=== PATIENT | female | born 1960 | race African-American/Black ===

== ENCOUNTER 2016-08-25 10:22 | Emergency (ER) | payer MEDICAID ==
[~2016-08-25] VITALS: Ht 167.6 cm; Wt 60.0 kg
[~2016-08-25 10:22] MED LIST: [UNRECOGNIZED DRUG - REMARK]
[2016-08-25] MEDS ORDERED: MORPHINE SULFATE 4 MG/ML CPJ (NOT FOR IM USE) IV STA (11:19)
[2016-08-25] MEDS ORDERED: ONDANSETRON HCL 4MG/2ML VIAL IV STA (11:19)
[2016-08-25] MEDS ORDERED: FAMOTIDINE 20MG/2ML VIAL IV STA (11:19)
[2016-08-25] MEDS ORDERED: SODIUM CHLORIDE 0.9% 1,000 ML IV ONE (11:19)
[2016-08-25 12:17] LABS: CLARITY URINE CLEAR (CLEAR); COLOR URINE YELLOW (YELLOW); GLUCOSE URINE NEGATIVE (NEGATIVE); KETONES URINE NEGATIVE (NEGATIVE); LEUKOCYTE ESTERASE URINE 1+ (NEGATIVE); NITRITE URINE NEGATIVE (NEGATIVE); OCCULT BLOOD URINE NEGATIVE (NEGATIVE); PROTEIN URINE NEGATIVE (NEGATIVE); UROBILINOGEN URINE 0.2 E.U./dL (0.2-1.0)
[2016-08-25 12:27] LABS: BASOPHILS % 0.8 % (0.0-2.0); EOSINOPHILS % 3.3 % (0.0-5.0); HEMATOCRIT. 43.5 % (36.0-48.0); HEMOGLOBIN. 14.8 g/dL (12.0-16.0); LYMPHOCYTES % 30.2 % (20.0-50.0); MEAN CORPUSCULAR HEMOGLOBIN 32.8 pg (28.0-32.0); MEAN CORPUSCULAR VOLUME 96.7 fL (81.0-99.0); MEAN PLATELET VOLUME 9.5 fl (7.4-10.4); MONOCYTES % 9.8 % (2.0-8.0); NEUTROPHILS % 55.9 % (40.0-76.0); PLATELET 162 x1000/uL (130-400); RED CELL DISTRIBUTION WIDTH 14.1 % (11.6-14.6)
[2016-08-25 12:33] LABS: *AMPHETAMINES SCREEN URINE NEGATIVE (NEGATIVE); *BARBITURATES SCREEN URINE NEGATIVE (NEGATIVE); *BENZODIAZEPINES SCREEN URINE NEGATIVE (NEGATIVE); *COCAINE SCREEN URINE NEGATIVE (NEGATIVE); CANNABINOID URINE SCREEN PRESUMTIVE POSITIVE (NEGATIVE); METHADONE URINE SCREEN NEGATIVE (NEGATIVE); OPIATES URINE SCREEN NEGATIVE (NEGATIVE); PHENCYCLIDINE URINE SCREEN NEGATIVE (NEGATIVE)
[2016-08-25 12:43] LABS: CARBON DIOXIDE 31 mEq/L (21-32); CHLORIDE 103 mEq/L (98-107)
[2016-08-25 12:51] LABS: HCG SCREEN NEGATIVE
[2016-08-25 13:07] LABS: INR 1.1; PROTHROMBIN TIME 11.9 sec
[2016-08-25 14:49] VITALS: BP 134/77
== END 2016-08-25 14:54 | disposition home or self-care (01) ==
LOC: ER 11:17
DX: K80.20 Calculus of gallbladder without cholecystitis without obstruction (principal); N39.0 Urinary tract infection, site not specified; F41.9 Anxiety disorder, unspecified; I10 Essential (primary) hypertension; M19.90 Unspecified osteoarthritis, unspecified site; F17.200 Nicotine dependence, unspecified, uncomplicated; F12.10 Cannabis abuse, uncomplicated
CPT/HCPCS: 36415; 71010; 76705; 80053; 80305; 81001; 81025; 83690; 84703; 85025; 85610; 93005; 96361; 96374; 96375; 99285; J2270; J2405; J3490; J7030; Z7610

== ENCOUNTER 2017-01-01 12:42 | Emergency (ER) | payer MEDICAID, MEDICARE ==
[~2017-01-01] VITALS: Ht 167.6 cm; Wt 66.0 kg
[2017-01-01] MEDS ORDERED: MORPHINE SULFATE 4 MG/ML CPJ (NOT FOR IM USE) IV STA (16:04)
[2017-01-01] MEDS ORDERED: SODIUM CHLORIDE 0.9% 1,000 ML IV ONE ×2 (16:04)
[2017-01-01 16:38] LABS: CHLORIDE 105 mEq/L (98-107)
[2017-01-01 16:40] LABS: HCG SCREEN NEGATIVE
[2017-01-01 16:41] LABS: CARBON DIOXIDE 30 mEq/L (21-32)
[2017-01-01 16:42] LABS: INR 1.1; PROTHROMBIN TIME 11.9 sec (9.4-11.6)
[2017-01-01 16:48] LABS: BASOPHILS % 0.4 % (0.0-2.0); EOSINOPHILS % 3.3 % (0.0-5.0); HEMOGLOBIN. 14.2 g/dL (12.0-16.0); LYMPHOCYTES % 32.7 % (20.0-50.0); MEAN CORPUSCULAR HEMOGLOBIN 32.9 pg (28.0-32.0); MEAN CORPUSCULAR VOLUME 97.8 fL (81.0-99.0); MEAN PLATELET VOLUME 9.1 fl (7.4-10.4); NEUTROPHILS % 57.6 % (40.0-76.0); PLATELET 197 x1000/uL (130-400)
[2017-01-01] MEDS ORDERED: FAMOTIDINE 20MG/2ML VIAL IV ONE (17:00)
[2017-01-01] MEDS: MORPHINE SULFATE 10 MG/ML CPJ IV NR ×2 (17:53→17:58)
[2017-01-01 19:06] LABS: CLARITY URINE CLEAR (CLEAR); COLOR URINE YELLOW (YELLOW); GLUCOSE URINE NEGATIVE (NEGATIVE); KETONES URINE NEGATIVE (NEGATIVE); LEUKOCYTE ESTERASE URINE TRACE (NEGATIVE); NITRITE URINE NEGATIVE (NEGATIVE); OCCULT BLOOD URINE NEGATIVE (NEGATIVE); PROTEIN URINE NEGATIVE (NEGATIVE); SPECIFIC GRAVITY URINE 1.014 (1.005-1.030)
[2017-01-01] MEDS ORDERED: POTASSIUM CHLORIDE 20MEQ TABLET SR PO ONE (19:45)
[2017-01-01] MEDS ORDERED: IOHEXOL-300 100 ML BOTTLE ONE (20:38)
[2017-01-01 22:38] VITALS: BP 125/80
== END 2017-01-01 22:39 | disposition home or self-care (01) ==
LOC: ER 13:55
DX: K80.20 Calculus of gallbladder without cholecystitis without obstruction (principal); D25.9 Leiomyoma of uterus, unspecified; F17.210 Nicotine dependence, cigarettes, uncomplicated; I10 Essential (primary) hypertension; F12.10 Cannabis abuse, uncomplicated; F10.10 Alcohol abuse, uncomplicated; Y90.9 Presence of alcohol in blood, level not specified
CPT/HCPCS: 36415; 74177; 76705; 80053; 81001; 83690; 84703; 85025; 85610; 96361; 96374; 96375; 96376; 99285; J2270; J3490; J7030; Q9967; Z7610

== ENCOUNTER 2018-05-13 14:37 | Emergency (ER) | payer MEDICARE ==
[~2018-05-13] VITALS: Ht 167.6 cm; Wt 78.0 kg
[2018-05-13 14:52] VITALS: BP 136/74
== END 2018-05-13 22:20 | disposition left against medical advice (07) ==
LOC: ER 14:37
DX: Z53.21 Procedure and treatment not carried out due to patient leaving prior to being seen by health care provider (principal)

== ENCOUNTER 2019-05-22 00:19 | Emergency (ER) | payer MEDICAID, MEDICARE ==
[~2019-05-22] VITALS: Ht 167.6 cm; Wt 73.0 kg
[2019-05-22] MEDS ORDERED: SODIUM CHLORIDE 0.9% 1,000 ML IV NR (01:23)
[2019-05-22] MEDS ORDERED: ONDANSETRON HCL 4MG/2ML INJ IV NR (01:23)
[2019-05-22 01:43] LABS: CLARITY URINE CLEAR (CLEAR); COLOR URINE ORANGE (YELLOW); KETONES URINE TRACE (NEGATIVE); LEUKOCYTE ESTERASE URINE 2+ (NEGATIVE); NITRITE URINE POSITIVE (NEGATIVE); OCCULT BLOOD URINE NEGATIVE (NEGATIVE); PH URINE 6.5 (4.5-8.0); PROTEIN URINE NEGATIVE (NEGATIVE); SPECIFIC GRAVITY URINE 1.027 (1.005-1.030)
[2019-05-22 01:54] LABS: BASOPHILS % 0.4 % (0.0-2.0); HEMATOCRIT. 29.1 % (36.0-48.0); HEMOGLOBIN. 9.9 g/dL (12.0-16.0); LYMPHOCYTES % 23.4 % (20.0-50.0); MEAN CORPUSCULAR HEMOGLOBIN 36.3 pg (28.0-32.0); MEAN CORPUSCULAR VOLUME 106.7 fL (81.0-99.0); MEAN PLATELET VOLUME 9.8 fl (7.4-10.4); MONOCYTES % 6.9 % (2.0-8.0); NEUTROPHILS % 68.3 % (40.0-76.0); PLATELET 141 x1000/uL (130-400); RED BLOOD CELL COUNT 2.73 mill/uL (4.2-5.4); RED CELL DISTRIBUTION WIDTH 13.2 % (11.6-14.6)
[2019-05-22 02:00] LABS: INR 1.4; PROTHROMBIN TIME 14.7 sec (9.6-11.0)
[2019-05-22 02:05] LABS: CHLORIDE 108 mEq/L (98-107)
[2019-05-22] MEDS ORDERED: IOHEXOL-300 100 ML BOTTLE ONE (04:28)
[2019-05-22] MEDS ORDERED: ONDANSETRON HCL 4MG/2ML INJ IV STA (05:48)
[2019-05-22] MEDS ORDERED: HYDROCODONE/ACETAMINOPHEN 5/325MG TABLET PO STA (05:48)
[2019-05-22 10:08] VITALS: BP 112/60
== END 2019-05-22 10:20 | disposition home or self-care (01) ==
LOC: ER 00:19
DX: K80.20 Calculus of gallbladder without cholecystitis without obstruction (principal); R11.2 Nausea with vomiting, unspecified; F17.200 Nicotine dependence, unspecified, uncomplicated
CPT/HCPCS: 36415; 74177; 76705; 80053; 81003; 83690; 85025; 85610; 96361; 96374; 96376; 99285; J2405; Q9967

== ENCOUNTER 2019-05-24 09:45 | Inpatient (IN) | payer MEDICAID ==
[~2019-05-24] VITALS: Ht 167.6 cm; Wt 66.7 kg
[2019-05-24 12:01] LABS: BASOPHILS % 0.2 % (0.0-2.0); EOSINOPHILS % 0.1 % (0.0-5.0); HEMATOCRIT. 21.8 % (36.0-48.0); HEMOGLOBIN. 7.4 g/dL (12.0-16.0); LYMPHOCYTES % 11.6 % (20.0-50.0); MEAN CORPUSCULAR HEMOGLOBIN 36.7 pg (28.0-32.0); MEAN CORPUSCULAR VOLUME 107.4 fL (81.0-99.0); MEAN PLATELET VOLUME 10.3 fl (7.4-10.4); MONOCYTES % 7.2 % (2.0-8.0); NEUTROPHILS % 80.9 % (40.0-76.0); PLATELET 138 x1000/uL (130-400); RED BLOOD CELL COUNT 2.03 mill/uL (4.2-5.4); RED CELL DISTRIBUTION WIDTH 13.2 % (11.6-14.6)
[2019-05-24 12:05] LABS: CLARITY URINE CLEAR (CLEAR); COLOR URINE DARK YELLOW (YELLOW); KETONES URINE TRACE (NEGATIVE); LEUKOCYTE ESTERASE URINE 1+ (NEGATIVE); NITRITE URINE NEGATIVE (NEGATIVE); OCCULT BLOOD URINE NEGATIVE (NEGATIVE); PH URINE 5.5 (4.5-8.0); PROTEIN URINE NEGATIVE (NEGATIVE); SPECIFIC GRAVITY URINE 1.025 (1.005-1.030)
[2019-05-24 12:06] LABS: CHLORIDE 110 mEq/L (98-107)
[2019-05-24 12:08] LABS: INR 1.4
[2019-05-24] MEDS ORDERED: ACETAMINOPHEN 325MG TABLET PO PRN (14:45)
[2019-05-24] MEDS ORDERED: ONDANSETRON HCL 4MG/2ML INJ IV PRN (14:45)
[2019-05-24] MEDS ORDERED: PANTOPRAZOLE SODIUM 40 MG/VIAL IV SCH (14:45)
[2019-05-24] MEDS ORDERED: IPRATROPIUM/ALBUTEROL 0.5-3(2.5)MG/3ML NEB HHN PRN (14:45)
[2019-05-24] MEDS ORDERED: HYDROCODONE/ACETAMINOPHEN 5/325MG TABLET PO PRN (14:45)
[2019-05-24] MEDS: PANTOPRAZOLE SODIUM 40 MG/VIAL IV SCH ×2 (15:15→23:33)
[2019-05-24] MEDS ORDERED: THIAMINE HCL 100 MG in SODIUM CHLORIDE 0.9% 50 ML IV NR (15:45)
[2019-05-24] MEDS ORDERED: FENTANYL CITRATE/PF 50MCG/ML 2ML VIAL ONE (16:45)
[2019-05-24] MEDS ORDERED: MIDAZOLAM HCL 5 MG/5 ML VIAL ONE (16:45)
[2019-05-24] MEDS ORDERED: FENTANYL CITRATE/PF 50MCG/ML 2ML VIAL IV PRN (16:53)
[2019-05-24] MEDS ORDERED: MIDAZOLAM HCL 5 MG/5 ML VIAL IV PRN (16:54)
[2019-05-24] MEDS ORDERED: DIAZEPAM 5 MG/ML 2ML CPJ IV PRN (16:56)
[2019-05-24] MEDS ORDERED: DIAZEPAM 5 MG/ML 2ML CPJ ONE (17:01)
[2019-05-24 18:20] VITALS: BP 104/48
[2019-05-24] MEDS ORDERED: OCTREOTIDE 1,000 MCG in SODIUM CHLORIDE 0.9% 100 ML IV SCH (18:30)
[2019-05-24] MEDS ORDERED: OCTREOTIDE 1,000 MCG in SODIUM CHLORIDE 0.9% 98 ML IV SCH (18:30)
[2019-05-24 20:00] VITALS: BP 104/57
[2019-05-24 20:22] LABS: BASOPHILS % 0.3 % (0.0-2.0); EOSINOPHILS % 0.7 % (0.0-5.0); LYMPHOCYTES % 31.5 % (20.0-50.0); MEAN CORPUSCULAR HEMOGLOBIN 36.8 pg (28.0-32.0); MEAN CORPUSCULAR VOLUME 108.7 fL (81.0-99.0); MEAN PLATELET VOLUME 10.4 fl (7.4-10.4); MONOCYTES % 8.9 % (2.0-8.0); NEUTROPHILS % 58.6 % (40.0-76.0); PLATELET 90 x1000/uL (130-400); RED BLOOD CELL COUNT 1.63 mill/uL (4.2-5.4); RED CELL DISTRIBUTION WIDTH 13.3 % (11.6-14.6)
[2019-05-24 20:43] LABS: HEMATOCRIT. 17.8 % (36.0-48.0)
[2019-05-24 21:57] LABS: FOLIC ACID (FOLATE) SERUM 5.4 ng/mL (>5.38)
[2019-05-24 22:20] VITALS: BP 104/57
[2019-05-24 22:35] VITALS: BP 102/50
[2019-05-24 23:35] VITALS: BP 113/57
[2019-05-25] VITALS (15 sets, daily range): BP systolic 98–127; BP diastolic 52–68
[2019-05-25] MEDS ORDERED: FOLIC ACID 1 MG, THIAMINE HCL 100 MG, MVI, ADULT NO.1 10 ML in DEXTROSE 5% WATER 1,000 ML IV ONE ×8 (02:15→09:00)
[2019-05-25] MEDS ORDERED: DEXT 5%/0.45% NACL 1000ML 1,000 ML IV SCH ×2 (02:15→14:00)
[2019-05-25] MEDS ORDERED: FOLIC ACID 1 MG, THIAMINE HCL 100 MG, MVI, ADULT NO.1 10 ML in DEXT 5%/0.45% NACL 1000M... IV SCH ×4 (04:00)
[2019-05-25 06:49] LABS: INR 1.3
[2019-05-25 06:50] LABS: BASOPHILS % 0.6 % (0.0-2.0); EOSINOPHILS % 2.1 % (0.0-5.0); LYMPHOCYTES % 29.1 % (20.0-50.0); MEAN CORPUSCULAR HEMOGLOBIN 34.8 pg (28.0-32.0); MEAN CORPUSCULAR VOLUME 99.5 fL (81.0-99.0); MEAN PLATELET VOLUME 10.3 fl (7.4-10.4); NEUTROPHILS % 59.2 % (40.0-76.0); PLATELET 75 x1000/uL (130-400); RED BLOOD CELL COUNT 2.41 mill/uL (4.2-5.4)
[2019-05-25] MEDS: METOCLOPRAMIDE HCL 10MG/2ML VIAL IV SCH ×4 (06:53→21:08)
[2019-05-25] MEDS: SUCRALFATE 1 G/10 ML UDC PO SCH ×4 (06:53→21:08)
[2019-05-25 07:02] LABS: HEMOGLOBIN. 8.4 g/dL (12.0-16.0)
[2019-05-25 07:24] LABS: CHLORIDE 114 mEq/L (98-107)
[2019-05-25 07:36] LABS: LDL CHOLESTEROL 33 mg/dL (5-100)
[2019-05-25 07:38] LABS: T4 FREE 1.06 ng/dL (0.76-1.46)
[2019-05-25 07:39] LABS: HDL CHOLESTEROL 29 mg/dL (40-59)
[2019-05-25] MEDS ORDERED: POTASSIUM CHLORIDE 20MEQ TABLET SR PO NR ×2 (09:00→12:43)
[2019-05-25] MEDS: PANTOPRAZOLE SODIUM 40 MG/VIAL IV SCH ×2 (09:47→21:08)
[2019-05-25] MEDS: PHYTONADIONE 10MG/ML AMP SUBCUT SCH (09:48)
[2019-05-25 10:15] LABS: PHOSPHORUS 2.3 mg/dL (2.5-4.9)
[2019-05-25 15:51] LABS: HEMATOCRIT 25.6 % (36.0-48.0); HEMOGLOBIN 8.8 g/dL (12.0-16.0)
[2019-05-25 15:52] LABS: INR 1.2; PROTHROMBIN TIME 13.4 sec (9.6-11.0)
[2019-05-26] VITALS: BP 110/61
[2019-05-26] MEDS: DEXT 5%/0.45% NACL 1000ML 1,000 ML IV SCH ×2 (02:37→13:58)
[2019-05-26 04:00] VITALS: BP 114/71
[2019-05-26] MEDS: SUCRALFATE 1 G/10 ML UDC PO SCH ×4 (05:54→21:29)
[2019-05-26] MEDS: METOCLOPRAMIDE HCL 10MG/2ML VIAL IV SCH ×4 (05:55→21:34)
[2019-05-26 08:00] VITALS: BP 100/55
[2019-05-26] MEDS: PHYTONADIONE 10MG/ML AMP SUBCUT SCH (09:04)
[2019-05-26] MEDS: PANTOPRAZOLE SODIUM 40 MG/VIAL IV SCH ×2 (09:04→21:30)
[2019-05-26] MEDS: FOLIC ACID 1 MG, THIAMINE HCL 100 MG, MVI, ADULT NO.1 10 ML in DEXTROSE 5% WATER 1,000 ML IV SCH ×4 (09:09)
[2019-05-26 09:33] LABS: BASOPHILS % 0.5 % (0.0-2.0); EOSINOPHILS % 3.7 % (0.0-5.0); HEMATOCRIT. 26.5 % (36.0-48.0); LYMPHOCYTES % 34.2 % (20.0-50.0); MEAN CORPUSCULAR HEMOGLOBIN 34.4 pg (28.0-32.0); MEAN CORPUSCULAR VOLUME 101.7 fL (81.0-99.0); MEAN PLATELET VOLUME 10.2 fl (7.4-10.4); NEUTROPHILS % 49.6 % (40.0-76.0); PLATELET 89 x1000/uL (130-400); RED CELL DISTRIBUTION WIDTH 20.5 % (11.6-14.6)
[2019-05-26 09:40] LABS: INR 1.2; PROTHROMBIN TIME 13.4 sec (9.6-11.0)
[2019-05-26] MEDS ORDERED: SIMETHICONE 40 MG/0.6 ML 30ML ONE (10:46)
[2019-05-26] MEDS ORDERED: MIDAZOLAM HCL 2 MG/2 ML VIAL ONE (11:33)
[2019-05-26] MEDS ORDERED: DIPHENHYDRAMINE 50MG/ML VIAL ONE (11:33)
[2019-05-26] MEDS ORDERED: LIDOCAINE HCL/PF 1% 10 MG/ML 5ML VIAL ONE (11:34)
[2019-05-26] MEDS ORDERED: FENTANYL CITRATE/PF 50MCG/ML 2ML VIAL ONE (11:34)
[2019-05-26] MEDS ORDERED: PROPOFOL 200MG/20ML VIAL IV ONE (11:34)
[2019-05-26] MEDS ORDERED: BARIUM SULFATE 450ML ORAL SUSP PO SCH ×2 (12:15→14:45)
[2019-05-26 14:59] LABS: CHLORIDE 112 mEq/L (98-107)
[2019-05-26 15:37] LABS: HEPATITIS B SURFACE ANTIGEN NEGATIVE
[2019-05-26 16:00] VITALS: BP 110/58
[2019-05-26 16:07] LABS: HEPATITIS A AB IGM NEGATIVE (NEGATIVE)
[2019-05-26 16:49] LABS: HEMATOCRIT 24.5 % (36.0-48.0); HEMOGLOBIN 8.4 g/dL (12.0-16.0); MEAN CORPUSCULAR HEMOGLOBIN 34.7 pg (28.0-32.0); MEAN CORPUSCULAR VOLUME 101.8 fL (81.0-99.0); PLATELET 87 x1000/uL (130-400); RED BLOOD CELL COUNT 2.41 mill/uL (4.2-5.4); RED CELL DISTRIBUTION WIDTH 20.8 % (11.6-14.6)
[2019-05-26 16:55] LABS: INR 1.2; PROTHROMBIN TIME 13.2 sec (9.6-11.0)
[2019-05-26] MEDS: FERROUS SULFATE 325MG TABLET PO SCH (17:44)
[2019-05-26 20:00] VITALS: BP_SYST 107; BP_SYST 112; BP_DIAS 49; BP_DIAS 57
[2019-05-27] VITALS: BP 114/73
[2019-05-27] MEDS: DEXT 5%/0.45% NACL 1000ML 1,000 ML IV SCH (00:19)
[2019-05-27 06:40] LABS: HEMATOCRIT 24.5 % (36.0-48.0); HEMOGLOBIN 8.6 g/dL (12.0-16.0); MEAN CORPUSCULAR HEMOGLOBIN 35.4 pg (28.0-32.0); MEAN CORPUSCULAR VOLUME 101.3 fL (81.0-99.0); PLATELET 92 x1000/uL (130-400); RED BLOOD CELL COUNT 2.41 mill/uL (4.2-5.4); RED CELL DISTRIBUTION WIDTH 20.1 % (11.6-14.6)
[2019-05-27] MEDS: FERROUS SULFATE 325MG TABLET PO SCH ×2 (06:41→12:17)
[2019-05-27] MEDS: METOCLOPRAMIDE HCL 10MG/2ML VIAL IV SCH ×2 (06:41→12:17)
[2019-05-27] MEDS: SUCRALFATE 1 G/10 ML UDC PO SCH ×2 (06:41→12:17)
[2019-05-27 06:59] LABS: CHLORIDE 112 mEq/L (98-107)
[2019-05-27 08:00] VITALS: BP_SYST 109; BP_SYST 160; BP_DIAS 64; BP_DIAS 79
[2019-05-27] MEDS: PANTOPRAZOLE SODIUM 40 MG/VIAL IV SCH (09:19)
[2019-05-27] MEDS: PHYTONADIONE 10MG/ML AMP SUBCUT SCH (09:20)
[2019-05-27] MEDS: FOLIC ACID 1 MG, THIAMINE HCL 100 MG, MVI, ADULT NO.1 10 ML in DEXTROSE 5% WATER 1,000 ML IV SCH ×4 (12:16)
[2019-05-27] MEDS ORDERED: HYDR-4001 MT (13:06)
[2019-05-27] MEDS ORDERED: PANT40SU MT (13:06)
[2019-05-27] MEDS ORDERED: SUCR1TAB30 MT (13:06)
[2019-05-27 13:52] LABS: HEMATOCRIT 29.5 % (36.0-48.0)
[2019-05-27 15:58] VITALS: BP 120/74
[2019-05-27 16:18] VITALS: BP 120/74
[2019-05-30 15:11] LABS: 7-AMINOCLONAZEPAM CONFIRM Negative (.); ALPRAZOLAM CONFIRM Negative (.); CHLORDIAZEPOXIDE CONFIRM Negative (.); CLONAZEPAM CONFIRM Negative (.); DESMETHYLCHLORDIAZEPOXIDE Negative (.); DIAZEPAM CONFIRM 13 ng/mL (.); FLURAZEPAM CONFIRM Negative (.); LORAZEPAM CONFIRM Negative (.); MIDAZOLAM CONFIRM 2 ng/mL (.); OXAZEPAM CONFIRM Negative (.); TEMAZEPAM CONFIRM Negative (.); TRIAZOLAM CONFIRM Negative (.)
[2019-06-01 19:06] LABS: BARBITURATE SCREEN Negative ug/mL (Cutoff:0.1); BENZODIAZEPINE SCREEN ++POSITIVE++ ng/mL (Cutoff:20); OPIATES SCREEN Negative ng/mL (Cutoff:5); PHENCYCLIDINE SCREEN Negative ng/mL (Cutoff:8)
== END 2019-05-27 17:30 | disposition home or self-care (01) | DRG 241 ==
LOC: ER 09:45 → 5WST 14:14 → ENRESERV 16:02
PROVIDERS: ADMIT Internal Medicine; ATTEND Internal Medicine
PROC: 0DJ08ZZ Inspection of Upper Intestinal Tract, Via Natural or Artificial Opening Endoscopic (ICD-10-PCS; principal; 2019-05-24)
PROC: 30233N1 Transfusion of Nonautologous Red Blood Cells into Peripheral Vein, Percutaneous Approach (ICD-10-PCS; 2019-05-24)
PROC: 30233K1 Transfusion of Nonautologous Frozen Plasma into Peripheral Vein, Percutaneous Approach (ICD-10-PCS; 2019-05-25)
PROC: 0DB98ZX Excision of Duodenum, Via Natural or Artificial Opening Endoscopic, Diagnostic (ICD-10-PCS; 2019-05-26)
PROC: 0DB68ZX Excision of Stomach, Via Natural or Artificial Opening Endoscopic, Diagnostic (ICD-10-PCS; 2019-05-26)
DX: K29.81 Duodenitis with bleeding (principal); E43 Unspecified severe protein-calorie malnutrition; D68.9 Coagulation defect, unspecified; D69.6 Thrombocytopenia, unspecified; R18.8 Other ascites; E87.8 Other disorders of electrolyte and fluid balance, not elsewhere classified; R04.2 Hemoptysis; D50.0 Iron deficiency anemia secondary to blood loss (chronic); K25.4 Chronic or unspecified gastric ulcer with hemorrhage; K29.71 Gastritis, unspecified, with bleeding; K52.9 Noninfective gastroenteritis and colitis, unspecified; K80.20 Calculus of gallbladder without cholecystitis without obstruction; E86.0 Dehydration; K70.9 Alcoholic liver disease, unspecified; I10 Essential (primary) hypertension; K76.0 Fatty (change of) liver, not elsewhere classified; Y90.9 Presence of alcohol in blood, level not specified; F10.20 Alcohol dependence, uncomplicated; E87.6 Hypokalemia; Z72.0 Tobacco use; Z87.11 Personal history of peptic ulcer disease; Z68.23 Body mass index [BMI] 23.0-23.9, adult; Z71.6 Tobacco abuse counseling; Z71.41 Alcohol abuse counseling and surveillance of alcoholic; R45.1 Restlessness and agitation
CPT/HCPCS: 36415; 71045; 74177; 76705; 80048; 80053; 80061; 80076; 80307; 81003; 82140; 82248; 82378; 82607; 82728; 82746; 83540; 83550; 83615; 83735; 84100; 84439; 84443; 85014; 85018; 85025; 85027; 85384; 86705; 86709; 86803; 86850; 86900; 86920; 86927; 87340; 88305; 88312; 88313; 99285; C9113; J1200; J2250; J2354; J2704; J2765; J3010; J3411; J3430; J3490; J7050; J7070; P9016; P9017

== ENCOUNTER 2019-12-10 18:01 | Emergency (ER) | payer MEDICAID ==
[~2019-12-10] VITALS: Ht 167.6 cm; Wt 73.0 kg
[~2019-12-10 18:01] MED LIST changes: +HYDR-4001 MT; +PANT40SU MT; +SUCR1TAB30 MT; -[UNRECOGNIZED DRUG - REMARK]
[2019-12-10] MEDS ORDERED: FAMOTIDINE 20MG/2ML VIAL IV ONE (20:30)
[2019-12-10 20:49] LABS: EOSINOPHILS % 2.1 % (0.0-5.0); HEMATOCRIT. 33.7 % (36.0-48.0); HEMOGLOBIN. 11.5 g/dL (12.0-16.0); LYMPHOCYTES % 30.8 % (20.0-50.0); MEAN CORPUSCULAR HEMOGLOBIN 35.7 pg (28.0-32.0); MEAN CORPUSCULAR VOLUME 104.9 fL (81.0-99.0); MEAN PLATELET VOLUME 9.6 fl (7.4-10.4); MONOCYTES % 13.8 % (2.0-8.0); NEUTROPHILS % 52.3 % (40.0-76.0); PLATELET 106 x1000/uL (130-400); RED BLOOD CELL COUNT 3.21 mill/uL (4.2-5.4); RED CELL DISTRIBUTION WIDTH 14.3 % (11.6-14.6)
[2019-12-10 20:55] LABS: CHLORIDE 110 mEq/L (98-107)
[2019-12-10 20:56] LABS: INR 1.5; PROTHROMBIN TIME 15.7 sec (9.6-11.0)
[2019-12-10 21:00] LABS: ETHANOL BLOOD < 10 mg/dL
[2019-12-10] MEDS ORDERED: KETOROLAC 15MG/ML VIAL IV ONE (21:45)
[2019-12-10 22:43] LABS: CLARITY URINE TURBID (CLEAR); COLOR URINE ORANGE (YELLOW); KETONES URINE TRACE (NEGATIVE); LEUKOCYTE ESTERASE URINE 1+ (NEGATIVE); NITRITE URINE NEGATIVE (NEGATIVE); OCCULT BLOOD URINE NEGATIVE (NEGATIVE); PROTEIN URINE NEGATIVE (NEGATIVE); SPECIFIC GRAVITY URINE 1.026 (1.005-1.030)
[2019-12-10 22:52] LABS: CANNABINOID URINE SCREEN PRESUMTIVE POSITIVE (NEGATIVE); PHENCYCLIDINE URINE SCREEN NEGATIVE (NEGATIVE)
[2019-12-10 22:56] LABS: *AMPHETAMINES SCREEN URINE NEGATIVE (NEGATIVE); *BARBITURATES SCREEN URINE NEGATIVE (NEGATIVE); *BENZODIAZEPINES SCREEN URINE PRESUMTIVE POSITIVE (NEGATIVE); *COCAINE SCREEN URINE NEGATIVE (NEGATIVE)
[2019-12-10 22:57] LABS: METHADONE URINE SCREEN NEGATIVE (NEGATIVE); OPIATES URINE SCREEN NEGATIVE (NEGATIVE)
[2019-12-11 00:20] VITALS: BP 113/59
== END 2019-12-11 01:40 | disposition home or self-care (01) ==
LOC: ER 18:01
DX: K80.80 Other cholelithiasis without obstruction (principal); R10.9 Unspecified abdominal pain; K74.60 Unspecified cirrhosis of liver; N39.0 Urinary tract infection, site not specified; I10 Essential (primary) hypertension
CPT/HCPCS: 36415; 74176; 80053; 80305; 80320; 81003; 83690; 83880; 84484; 85025; 85610; 93005; 96374; 96375; 99285; J1885; J3490; G0480

== ENCOUNTER 2020-01-20 12:05 | Emergency (ER) | payer MEDICAID ==
[~2020-01-20] VITALS: Ht 167.6 cm; Wt 83.0 kg
[2020-01-20 12:22] VITALS: BP 132/81
[2020-01-20 14:14] LABS: BASOPHILS % 0.5 % (0.0-2.0); EOSINOPHILS % 1.3 % (0.0-5.0); HEMATOCRIT. 33.8 % (36.0-48.0); HEMOGLOBIN. 11.4 g/dL (12.0-16.0); LYMPHOCYTES % 22.5 % (20.0-50.0); MEAN CORPUSCULAR HEMOGLOBIN 33.2 pg (28.0-32.0); MEAN PLATELET VOLUME 9.9 fl (7.4-10.4); MONOCYTES % 14.3 % (2.0-8.0); NEUTROPHILS % 61.4 % (40.0-76.0); PLATELET 110 x1000/uL (130-400); RED BLOOD CELL COUNT 3.42 mill/uL (4.2-5.4); RED CELL DISTRIBUTION WIDTH 15.1 % (11.6-14.6)
[2020-01-20 14:20] LABS: CHLORIDE 110 mEq/L (98-107)
[2020-01-20] MEDS ORDERED: ALBUTEROL (0.083%) 2.5MG/3ML NEB HHN STA (15:07)
[2020-01-20] MEDS ORDERED: IPRATROPIUM BROMIDE (0.02%) 0.5MG/2.5ML NEB HHN STA (15:07)
[2020-01-20] MEDS ORDERED: PREDNISONE 20MG TABLET PO STA (15:07)
== END 2020-01-20 16:51 | disposition home or self-care (01) ==
LOC: ER 12:21
DX: J40 Bronchitis, not specified as acute or chronic (principal); I10 Essential (primary) hypertension; Z79.899 Other long term (current) drug therapy
CPT/HCPCS: 36415; 71045; 80053; 83880; 84484; 85025; 93005; 99285; J7512; Z7610

== ENCOUNTER 2020-01-26 17:51 | Inpatient (IN) | payer MEDICAID ==
[~2020-01-26] VITALS: Ht 165.1 cm; Wt 85.3 kg
[2020-01-26] MEDS ORDERED: MORPHINE SULFATE 4 MG/ML CPJ (NOT FOR IM USE) IV STA (18:50)
[2020-01-26] MEDS ORDERED: ONDANSETRON HCL 4MG/2ML INJ IV STA (18:50)
[2020-01-26] MEDS ORDERED: FUROSEMIDE 40MG/4ML VIAL IV ONE (19:00)
[2020-01-26 20:03] LABS: CHLORIDE 109 mEq/L (98-107)
[2020-01-26 20:05] LABS: BASOPHILS % 0.3 % (0.0-2.0); EOSINOPHILS % 0.1 % (0.0-5.0); HEMATOCRIT. 37.7 % (36.0-48.0); HEMOGLOBIN. 12.5 g/dL (12.0-16.0); LYMPHOCYTES % 12.7 % (20.0-50.0); MEAN CORPUSCULAR VOLUME 99.4 fL (81.0-99.0); MONOCYTES % 7.8 % (2.0-8.0); NEUTROPHILS % 79.1 % (40.0-76.0); RED BLOOD CELL COUNT 3.79 mill/uL (4.2-5.4); RED CELL DISTRIBUTION WIDTH 14.7 % (11.6-14.6)
[2020-01-26 20:06] LABS: INR 1.5; PARTIAL THROMBOPLASTIN TIME 34.5 sec (23.4-31.0); PROTHROMBIN TIME 15.5 sec (9.6-11.0)
[2020-01-26 20:22] LABS: MEAN PLATELET VOLUME 10.2 fl (7.4-10.4); PLATELET 110 x1000/uL (130-400)
[2020-01-27 09:48] LABS: CLARITY URINE TURBID (CLEAR); COLOR URINE RED (YELLOW); KETONES URINE TRACE (NEGATIVE); LEUKOCYTE ESTERASE URINE 2+ (NEGATIVE); NITRITE URINE POSITIVE (NEGATIVE); OCCULT BLOOD URINE 3+ (NEGATIVE); PROTEIN URINE TRACE (NEGATIVE); SPECIFIC GRAVITY URINE 1.018 (1.005-1.030)
[2020-01-27 10:00] VITALS: BP 141/69
[2020-01-27] MEDS ORDERED: PANTOPRAZOLE SODIUM 40 MG/VIAL IV NR (10:45)
[2020-01-27] MEDS ORDERED: MAGNESIUM/ALUMINUM HYDROXIDE/SIMETHICONE 30ML UDC PO PRN (10:45)
[2020-01-27] MEDS ORDERED: NA PHOS,M-B/NA PHOS,DI-BA ENEMA 118ML PR PRN (10:45)
[2020-01-27] MEDS ORDERED: ACETAMINOPHEN 650MG/20.3ML UDC GT PRN (10:45)
[2020-01-27] MEDS ORDERED: GUAIFENESIN 200MG/10ML SUGAR FREE UDC PO PRN (10:45)
[2020-01-27] MEDS ORDERED: DIPHENHYDRAMINE 50MG/ML VIAL IV PRN (10:45)
[2020-01-27] MEDS ORDERED: LORAZEPAM 0.5MG TABLET PO PRN (10:45)
[2020-01-27] MEDS ORDERED: ACETAMINOPHEN 650MG SUPP PR PRN (10:45)
[2020-01-27] MEDS ORDERED: ALBUTEROL 6.7GM HFA INHALER ORI PRN (10:45)
[2020-01-27] MEDS ORDERED: ONDANSETRON HCL 4MG/2ML INJ IV PRN (10:45)
[2020-01-27] MEDS ORDERED: DOCUSATE SODIUM 100MG CAPSULE PO PRN (10:45)
[2020-01-27] MEDS ORDERED: SPIR25TA6 MT (11:18)
[2020-01-27] MEDS ORDERED: FURO40TA5 MT (11:18)
[2020-01-27] MEDS ORDERED: GABA-531 MT (11:19)
[2020-01-27] MEDS ORDERED: NAPR-681 MT (11:32)
[2020-01-27] MEDS ORDERED: OMEP20CA14 MT (11:32)
[2020-01-27] MEDS ORDERED: DICY20TA11 MT (11:32)
[2020-01-27] MEDS ORDERED: ATEN-42 MT (11:33)
[2020-01-27] MEDS ORDERED: TRAZ-251 MT (11:34)
[2020-01-27] MEDS ORDERED: P20 MT (11:36)
[2020-01-27] MEDS ORDERED: ALBU6.7H11 INH (11:39)
[2020-01-27] MEDS ORDERED: PIPERACILLIN/TAZ 3.375G PREMIX 50 ML IV SCH (12:00)
[2020-01-27 12:43] LABS: BG BASE EXCESS 0.2 mmol/L (-2.0-2.0); BG CARBOXYHEMOGLOBIN 0.8 % (0.5-1.5); BG DEOXYHEMOGLOBIN 6.5 % (0.0-5.0); BG HCO3 ACT 26.1 mmol/L (22.0-26.0); BG METHEMOGLOBIN 0.2 % (0.0-1.5); BG OXYGEN SATURATION 93.4 % (92.0-98.5); BG OXYHEMOGLOBIN 92.5 % (94.0-97.0); BG PCO2 47.8 mmHg (35.0-45.0); BG PH 7.355 (7.350-7.450); BG PO2 73.2 mmHg (75.0-100.0); BG SAMPLE SITE RIGHT RADIAL; BG TOTAL HEMOGLOBIN 11.9 g/dL (12.0-18.0); BG VENT MODE ROOM AIR
[2020-01-27 13:04] LABS: CHLORIDE 107 mEq/L (98-107)
[2020-01-27 13:04] LABS: BASOPHILS % 0.7 % (0.0-2.0); EOSINOPHILS % 2.3 % (0.0-5.0); HEMATOCRIT. 34.1 % (36.0-48.0); HEMOGLOBIN. 11.4 g/dL (12.0-16.0); LYMPHOCYTES % 18.3 % (20.0-50.0); MEAN CORPUSCULAR HEMOGLOBIN 33.4 pg (28.0-32.0); MEAN CORPUSCULAR VOLUME 100.1 fL (81.0-99.0); MEAN PLATELET VOLUME 9.8 fl (7.4-10.4); MONOCYTES % 14.5 % (2.0-8.0); NEUTROPHILS % 64.2 % (40.0-76.0); PLATELET 101 x1000/uL (130-400); RED BLOOD CELL COUNT 3.41 mill/uL (4.2-5.4); RED CELL DISTRIBUTION WIDTH 14.8 % (11.6-14.6)
[2020-01-27] MEDS ORDERED: POTASSIUM CHLORIDE 20MEQ TABLET SR PO NR (14:00)
[2020-01-27] MEDS: FUROSEMIDE 40MG/4ML VIAL IV SCH (14:28)
[2020-01-27] MEDS: SPIRONOLACTONE 25MG TABLET PO SCH (14:29)
[2020-01-27] MEDS: DEXAMETHASONE 4MG TABLET PO SCH (14:31)
[2020-01-27] MEDS ORDERED: ALBUTEROL 6.7GM HFA INHALER ORI SCH (18:00)
[2020-01-27] MEDS: PIPERACILLIN/TAZOBACTAM 3.375 G in DEXT 5% WATER 100 ML IV SCH ×2 (18:58→21:51)
[2020-01-27 19:07] VITALS: BP 141/69
[2020-01-27 20:00] VITALS: BP 124/64
[2020-01-28] VITALS: BP 123/72
[2020-01-28] MEDS: HYDROCODONE/ACETAMINOPHEN 5/325MG TABLET PO PRN (00:02)
[2020-01-28] MEDS: PIPERACILLIN/TAZOBACTAM 3.375 G in DEXT 5% WATER 100 ML IV SCH ×3 (03:51→21:45)
[2020-01-28 04:00] VITALS: BP 120/67
[2020-01-28] MEDS ORDERED: PIPERACILLIN/TAZOBACTAM 3.375 G in DEXT 5% WATER 100 ML IV SCH ×2 (06:00→12:45)
[2020-01-28 08:00] VITALS: BP 133/67
[2020-01-28] MEDS: FUROSEMIDE 40MG/4ML VIAL IV SCH (09:00)
[2020-01-28] MEDS: SPIRONOLACTONE 25MG TABLET PO SCH (09:49)
[2020-01-28] MEDS: DEXAMETHASONE 4MG TABLET PO SCH (09:49)
[2020-01-28] MEDS ORDERED: LIDOCAINE HCL 1% 20ML VIAL (Pyxis) INJ ONE (10:01)
[2020-01-28] MEDS ORDERED: SODIUM BICARBONATE 4% (2.4MEQ) 5ML VIAL IV ONE (10:02)
[2020-01-28 10:19] LABS: HEMATOCRIT. 33.4 % (36.0-48.0); MEAN CORPUSCULAR HEMOGLOBIN 32.8 pg (28.0-32.0); MEAN CORPUSCULAR VOLUME 99.5 fL (81.0-99.0); PLATELET 113 x1000/uL (130-400); RED BLOOD CELL COUNT 3.36 mill/uL (4.2-5.4); RED CELL DISTRIBUTION WIDTH 15.3 % (11.6-14.6)
[2020-01-28 10:58] LABS: CHLORIDE 107 mEq/L (98-107)
[2020-01-28 11:06] LABS: LDL CHOLESTEROL 74 mg/dL (5-100)
[2020-01-28 11:07] LABS: HDL CHOLESTEROL 30 mg/dL (40-59); T4 FREE 0.99 ng/dL (0.76-1.46)
[2020-01-28 12:00] VITALS: BP 132/73
[2020-01-28 16:00] VITALS: BP 124/57
[2020-01-28 21:27] LABS: PLATELET ESTIMATE DECREASED
[2020-01-29] MEDS: HYDROCODONE/ACETAMINOPHEN 5/325MG TABLET PO PRN ×3 (00:35→15:35)
[2020-01-29] MEDS: PIPERACILLIN/TAZOBACTAM 3.375 G in DEXT 5% WATER 100 ML IV SCH ×4 (02:00→20:13)
[2020-01-29 07:09] LABS: CHLORIDE 107 mEq/L (98-107)
[2020-01-29 07:59] VITALS: BP 124/76
[2020-01-29] MEDS: FUROSEMIDE 40MG/4ML VIAL IV SCH (08:50)
[2020-01-29] MEDS: SPIRONOLACTONE 25MG TABLET PO SCH (08:50)
[2020-01-29 11:45] VITALS: BP 110/54
[2020-01-29] MEDS ORDERED: LIDOCAINE HCL 1% 20ML VIAL (Pyxis) INJ ONE (14:24)
[2020-01-29] MEDS ORDERED: SODIUM BICARBONATE 4% (2.4MEQ) 5ML VIAL IV ONE (14:25)
[2020-01-29 16:00] VITALS: BP 120/62
[2020-01-29 20:00] VITALS: BP 107/55
[2020-01-29 20:45] LABS: BASOPHILS % 0.2 % (0.0-2.0); EOSINOPHILS % 0.4 % (0.0-5.0); HEMATOCRIT. 38.2 % (36.0-48.0); HEMOGLOBIN. 12.2 g/dL (12.0-16.0); LYMPHOCYTES % 11.7 % (20.0-50.0); MEAN CORPUSCULAR HEMOGLOBIN 32.5 pg (28.0-32.0); MEAN CORPUSCULAR VOLUME 102.2 fL (81.0-99.0); MEAN PLATELET VOLUME 10.1 fl (7.4-10.4); MONOCYTES % 8.9 % (2.0-8.0); NEUTROPHILS % 78.8 % (40.0-76.0); PLATELET 90 x1000/uL (130-400); RED BLOOD CELL COUNT 3.74 mill/uL (4.2-5.4); RED CELL DISTRIBUTION WIDTH 16.2 % (11.6-14.6)
[2020-01-29 20:54] LABS: CHLORIDE 106 mEq/L (98-107)
[2020-01-30] VITALS: BP 118/64
[2020-01-30] MEDS: PIPERACILLIN/TAZOBACTAM 3.375 G in DEXT 5% WATER 100 ML IV SCH ×3 (01:44→13:23)
[2020-01-30 04:00] VITALS: BP 121/51
[2020-01-30 06:44] LABS: BASOPHILS % 0.2 % (0.0-2.0); EOSINOPHILS % 1.2 % (0.0-5.0); HEMATOCRIT. 33.1 % (36.0-48.0); HEMOGLOBIN. 11.3 g/dL (12.0-16.0); LYMPHOCYTES % 15.6 % (20.0-50.0); MEAN CORPUSCULAR HEMOGLOBIN 33.5 pg (28.0-32.0); MEAN PLATELET VOLUME 9.6 fl (7.4-10.4); MONOCYTES % 10.7 % (2.0-8.0); NEUTROPHILS % 72.3 % (40.0-76.0); PLATELET 90 x1000/uL (130-400); RED BLOOD CELL COUNT 3.37 mill/uL (4.2-5.4)
[2020-01-30] MEDS: HYDROCODONE/ACETAMINOPHEN 5/325MG TABLET PO PRN ×2 (07:01→13:23)
[2020-01-30 07:17] LABS: CHLORIDE 107 mEq/L (98-107)
[2020-01-30 08:00] VITALS: BP 110/59
[2020-01-30] MEDS: SPIRONOLACTONE 25MG TABLET PO SCH (08:35)
[2020-01-30] MEDS: FUROSEMIDE 40MG/4ML VIAL IV SCH (08:35)
[2020-01-30 11:56] VITALS: BP 113/62
[2020-01-30 14:48] VITALS: BP 121/74
[2020-01-30 16:00] VITALS: BP 117/61
== END 2020-01-30 19:00 | disposition home health service (06) ==
LOC: ER 17:51 → 7WST 23:22 → EDBEDREQ 23:30 → EDBEDREQTM 23:30 → ENRESERV 01-27 08:48 → 6WST 01-28 05:07
PROVIDERS: ADMIT Internal Medicine; ATTEND Internal Medicine
PROC: 0W9G3ZZ Drainage of Peritoneal Cavity, Percutaneous Approach (ICD-10-PCS; principal; 2020-01-28)
PROC: 0W9G3ZZ Drainage of Peritoneal Cavity, Percutaneous Approach (ICD-10-PCS; 2020-01-29)
DX: K74.60 Unspecified cirrhosis of liver (principal); J18.9 Pneumonia, unspecified organism; E87.70 Fluid overload, unspecified; Z20.828 Contact with and (suspected) exposure to other viral communicable diseases; N39.0 Urinary tract infection, site not specified; K80.20 Calculus of gallbladder without cholecystitis without obstruction; K76.6 Portal hypertension; E87.6 Hypokalemia; R18.8 Other ascites; D64.9 Anemia, unspecified; D69.6 Thrombocytopenia, unspecified; D68.9 Coagulation defect, unspecified; F41.9 Anxiety disorder, unspecified; I10 Essential (primary) hypertension; R09.02 Hypoxemia; T38.0X5A Adverse effect of glucocorticoids and synthetic analogues, initial encounter; Y92.238 Other place in hospital as the place of occurrence of the external cause; Z79.899 Other long term (current) drug therapy; R06.03 Acute respiratory distress
CPT/HCPCS: 36415; 36600; 49083; 71045; 74176; 80048; 80053; 80061; 81003; 82040; 82375; 82805; 83615; 83880; 84439; 84443; 84478; 84484; 85025; 86850; 86900; 88108; 88312; 93306; 93970; 97110; 97116; 97162; 99285; C1893; C9113; J1940; J2270; J2405; J2543; J3490; J7040; J7060; J8540; U0003

== ENCOUNTER 2020-02-04 19:53 | Emergency (ER) | payer MEDICAID ==
[~2020-02-04] VITALS: Ht 167.6 cm; Wt 83.0 kg
[~2020-02-04 19:53] MED LIST changes: +ALBU6.7H11 INH; +ATEN-42 MT; +DICY20TA11 MT; +FURO40TA5 MT; +GABA-531 MT; +NAPR-681 MT; +OMEP20CA14 MT; +P20 MT; +SPIR25TA6 MT; +TRAZ-251 MT
[2020-02-04] MEDS ORDERED: CEPHALEXIN 250MG CAPSULE PO ONE (23:00)
[2020-02-05 00:35] VITALS: BP 115/72
[2020-02-10] MEDS ORDERED: HYDR-4001 MT (13:11)
[2020-02-10] MEDS ORDERED: LEVO500T2 MT (13:11)
[2020-02-10] MEDS ORDERED: SULF1TAB48 MT (13:11)
== END 2020-02-05 00:35 | disposition home or self-care (01) ==
LOC: ER 19:59
DX: R18.8 Other ascites (principal); K74.60 Unspecified cirrhosis of liver; L97.819 Non-pressure chronic ulcer of other part of right lower leg with unspecified severity; E11.9 Type 2 diabetes mellitus without complications; I10 Essential (primary) hypertension
CPT/HCPCS: 82542; 99283

== ENCOUNTER 2022-01-22 14:53 | Emergency (ER) | payer MEDICAID ==
[~2022-01-22] VITALS: Ht 167.6 cm; Wt 77.5 kg
[~2022-01-22 14:53] MED LIST changes: -ALBU6.7H11 INH; +ALBU6.7H15 INH; -DICY20TA11 MT; +DICY20TA2 MT; -GABA-531 MT; +GABA-532 MT; +LEVO500T2 MT; +SULF1TAB48 MT
[2022-01-22 15:12] VITALS: BP 120/54
== END 2022-01-22 15:23 | disposition left against medical advice (07) ==
LOC: ER 14:53
DX: Z53.21 Procedure and treatment not carried out due to patient leaving prior to being seen by health care provider (principal)